=== PATIENT | female | born 1975 | race Hispanic/Latino ===

== ENCOUNTER 2024-04-23 16:11 | Emergency (ER) | payer SELFPAY ==
[~2024-04-23] VITALS: Ht 157.5 cm; Wt 113.4 kg
[2024-04-23 16:18] VITALS: PULSE 89; RESP 16; TEMP 98.9; O2SAT 96
[2024-04-23 16:52] LABS: CLARITY,URINE CLOUDY (CLEAR); COLOR,URINE ORANGE (YELLOW); PH,URINE 5.5 (5 - 7)
[2024-04-23 16:53] LABS: BILIRUBIN,URINE 1+ (NEGATIVE); GLUCOSE, URINE 1+ (NEGATIVE); KETONES,URINE NEGATIVE (NEGATIVE); LEUKOCYTE ESTERASE ,URINE 1+ (NEGATIVE); NITRITE,URINE POSITIVE (NEGATIVE); PROTEIN,URINE DIPSTICK >=300 (NEGATIVE); URINE UROBILINOGEN 1 mg/dL (0.2 - 1)
[2024-04-23 16:59] LABS: BACTERIA,URINE MANY /HPF; EPITHELIAL CELLS,URINE FEW /LPF; MUCUS,URINE MANY (RARE); RBC,URINE >50 /HPF (0-5); WBC,URINE (MAN) >50 /HPF (0-5)
[2024-04-23] MEDS ORDERED: CEFDINIR300 MG PO (17:29)
== END 2024-04-23 18:45 | disposition home or self-care (01) ==
LOC: ER 16:28
DX: R10.32 Left lower quadrant pain (principal); N39.0 Urinary tract infection, site not specified; R30.0 Dysuria; R11.2 Nausea with vomiting, unspecified
CPT/HCPCS: 81001; 99283